=== PATIENT | female | born 1980 | race Caucasian/White ===

== ENCOUNTER 2018-03-06 14:41 | Emergency (ER) | payer SELFPAY ==
--- NOTE | 2018-03-06 16:17 | ER Document Report ---
HPI - HPI Pain Level: Denies Context: Patient is a 37-year-old female presents emergency room with a chief complaint of STD exposure. Patient states that she recently broke up with her ask within the past 6 weeks and she received a phone call today that he tested positive for gonorrhea. Patient states that she has not had any vaginal or pelvic pain, abdominal pain, nausea or vomiting, vaginal discharge. - REPRODUCTIVE Reproductive: DENIES: : Past Medical History - Social History Smoking Status: Smoker,Current Status Unk Family History: Reviewed & Not Pertinent - Past Medical History Cardiac Medical History: Reports: Hx Hypertension Musculoskeltal Medical History: Reports Hx Musculoskeletal Trauma - jaw Skin Medical History: Reports Hx Cellulitis Traumatic Medical History: Reports: Hx Fractures - jaw Past Surgical History: Reports: Hx Abdominal Surgery, Hx Appendectomy, Hx Oral Surgery - Jaw surgery, Hx Orthopedic Surgery - jaw, Hx Tonsillectomy - Immunizations Immunizations up to date: Yes Hx Diphtheria, Pertussis, Tetanus Vaccination: Yes Vertical Provider Document - CONSTITUTIONAL Notes: PHYSICAL EXAM GENERAL: Alert, interacts well. ABDOMEN: Soft, nondistended, nontender. No guarding, rebound, or rigidity.. Bowel sounds present in all 4 quadrants. FEMALE : Patient declined EXTREMITIES: Moves all 4 extremities spontaneously. No edema, radial and dorsalis pedis pulses 2/4 bilaterally. No cyanosis. NEUROLOGICAL: Alert and oriented x4. Normal speech. PSYCH: Normal affect, normal mood. SKIN: Warm, dry, normal turgor. No rashes or lesions noted. - INFECTION CONTROL TRAVEL OUTSIDE OF THE [place] IN LAST 30 DAYS: No Course - Re-evaluation Re-evalutation: Patient is a 37 old female who presents emergency department the chief complaint of concern for STD exposure. Patient opting for treatment for gonorrhea and chlamydia does not want to wait for results. Otherwise patient declined pelvic exam. Urine without any evidence of underlying UTI. Wet mount negative for yeast and trichomonas. Discussed with patient how we will follow- up with her results of stress test positive. Patient agrees with plan and stable for discharge home - Vital Signs Vital signs: Temp Pulse Resp BP Pulse Ox 97.9 F 78 18 159/87 H 99 03/06/18 14:47 03/06/18 14:47 03/06/18 14:47 03/06/18 14:47 03/06/18 14:47 Discharge - Discharge Clinical Impression: STD exposure Condition: Good Disposition: HOME, SELF-CARE Additional Instructions: You have been treated today for STD exposure. If you test positive for chlamydia or gonorrhea we will call you to the phone number provided. Please follow-up with your primary care for any other associated symptoms or concerns. Forms: Return to Work Referrals: [facility] [NO LOCAL MD] - Follow up as needed
[2018-03-06 16:37] LABS: BACTERIA (WET MOUNT) 4+ BACTERIA SEEN; EPITHELIALS (WET MOUNT) 4+ EPITHELIALS SEEN; T.VAGINALIS (WET MOUNT) NO TRICHOMONAS SEEN; WBCS (WET MOUNT) FEW WBCS SEEN; YEAST (WET MOUNT) NO YEAST SEEN
[2018-03-06 16:51] LABS: AMORPHOUS SEDIMENT,URINE TRACE /HPF; APPEARANCE,URINE CLOUDY; BILIRUBIN,URINE NEGATIVE (NEGATIVE); COLOR,URINE YELLOW; GLUCOSE, URINE NEGATIVE (NEGATIVE); KETONES,URINE NEGATIVE (NEGATIVE); LEUKOCYTE ESTERASE,URINE NEGATIVE (NEGATIVE); NITRITE,URINE NEGATIVE (NEGATIVE); PROTEIN,URINE NEGATIVE (NEGATIVE); URINE SPECIFIC GRAVITY 1.013; UROBILINOGEN,URINE NEGATIVE mg/dL (<2.0)
[2018-03-06] MEDS ORDERED: LIDOCAINE 1% INJ-PF (10 MG/ML) 30 ML SDV INJ ONE (17:35)
[2018-03-06] MEDS ORDERED: AZITHROMYCIN 250 MG TABLET PO ONE (17:35)
[2018-03-06] MEDS ORDERED: CEFTRIAXONE INJ 250 MG VIAL IM ONE (17:35)
[2018-03-06] MEDS ORDERED: ONDANSETRON 4 MG TAB.RAPDIS PO ONE (17:35)
[2018-03-06 17:43] LABS: CHLAM PCR NOT DETECTED (NOT DETECT); GON PCR NOT DETECTED (NOT DETECT)
[2018-03-06 17:54] VITALS: BP 131/83
== END 2018-03-06 18:10 | disposition home or self-care (01) ==
LOC: ER 14:41
DX: Z20.2 Contact with and (suspected) exposure to infections with a predominantly sexual mode of transmission (principal); I10 Essential (primary) hypertension
CPT/HCPCS: 99283; 96372; 87210; 81001; 87491; 87591; S0119; J3490; J0696

== ENCOUNTER 2018-12-29 10:28 | Emergency (ER) | payer SELFPAY ==
[2018-12-29 10:40] VITALS: BP 133/88
--- NOTE | 2018-12-29 11:04 | ER Document Report ---
HPI - HPI Patient complains to provider of: Cold symptoms Time Seen by Provider: 12/29/18 10:44 Onset/Duration: Persistent Quality of pain: Achy Pain Level: 4 Context: Patient presents complaining of cold symptoms for the past 3 days. Patient had a fever of 102 at home today. Patient does complain of productive cough. No nausea or vomiting. Patient states she did have some wheezing at home. Patient states she used another family members inhaler to help with her wheezing symptoms and then her wheezing improved. Associated Symptoms: Nonproductive cough, Fever, Rhinnorhea. denies: Nausea, Vomiting Exacerbated by: Denies Relieved by: Denies Similar symptoms previously: Yes Recently seen / treated by doctor: No - ROS ROS below otherwise negative: Yes Systems Reviewed and Negative: Yes All other systems reviewed and negative - CONSTITUTIONAL Constitutional: REPORTS: Fever - EENT EENT: REPORTS: Congestion - RESPIRATORY Respiratory: REPORTS: Coughing. DENIES: Trouble Breathing - GASTROINTESTINAL Gastrointestinal: DENIES: Abdominal Pain, Nausea, Patient vomiting - URINARY Urinary: DENIES: Dysuria - REPRODUCTIVE Reproductive: DENIES: : - MUSCULOSKELETAL Musculoskeletal: DENIES: Back Pain - DERM Skin Color: Normal Skin Problems: None Past Medical History - General Information source: Patient - Social History Smoking Status: Current Every Day Smoker Smoking Education Provided: Yes Frequency of alcohol use: None Drug Abuse: None Occupation: [employer] Lives with: Family Family History: Reviewed & Not Pertinent - Past Medical History Cardiac Medical History: Reports: Hx Hypertension Renal/ Medical History: Denies: Hx Peritoneal Dialysis Musculoskeletal Medical History: Reports Hx Musculoskeletal Trauma - jaw Skin Medical History: Reports Hx Cellulitis Traumatic Medical History: Reports: Hx Fractures - jaw Past Surgical History: Reports: Hx Abdominal Surgery, Hx Appendectomy, Hx Oral Surgery - Jaw surgery, Hx Orthopedic Surgery - jaw, Hx Tonsillectomy - Immunizations Immunizations up to date: Yes Hx Diphtheria, Pertussis, Tetanus Vaccination: Yes Vertical Provider Document - CONSTITUTIONAL Agree With Documented VS: Yes Exam Limitations: No Limitations General Appearance: WD/WN, No Apparent Distress - INFECTION CONTROL TRAVEL OUTSIDE OF THE [place] IN LAST 30 DAYS: No - HEENT HEENT: Atraumatic, Normocephalic. negative: Pharyngeal Exudate, Pharyngeal Tenderness, Pharyngeal Erythema, Tympanic Membrane Red, Tympanic Membrane Bulging Notes: clear rhinorrhea - NECK Neck: Normal Inspection, Supple. negative: Lymphadenopathy-Left, Lymphadenopathy-Right - RESPIRATORY Respiratory: Breath Sounds Normal, No Respiratory Distress. negative: Wheezing - CARDIOVASCULAR Cardiovascular: Regular Rate, Regular Rhythm. negative: Tachycardia - GI/ABDOMEN Gastrointestinal: Abdomen Soft - BACK Back: Normal Inspection - MUSCULOSKELETAL/EXTREMETIES Musculoskeletal/Extremeties: MAEW, FROM - NEURO Level of Consciousness: Awake, Alert, Appropriate Motor/Sensory: No Motor Deficit - DERM Integumentary: Warm, Dry, No Rash Course - Re-evaluation Re-evalutation: 12/29/18 12:27 Patient without any wheezing noted here. Will cover with steroids as well as inhaler given patient's self-report of wheezing and treatment within inhaled bronchodilator. No concern for pneumonia. Patient nontoxic in appearance. - Vital Signs Vital signs: Temp Pulse Resp BP Pulse Ox 99.9 F 91 16 133/88 H 98 12/29/18 10:38 12/29/18 10:38 12/29/18 10:38 12/29/18 10:38 12/29/18 10:38 - Laboratory Laboratory results interpreted by me: 12/29/18 12:27 Labs- Entire Visit 12/29/18 11:18 Influenza A (Rapid) NEGATIVE Influenza B (Rapid) NEGATIVE - Diagnostic Test Radiology reviewed: Reports reviewed Discharge - Discharge Clinical Impression: Upper respiratory infection Qualifiers: URI type: unspecified URI Qualified Code(s): J06.9 - Acute upper respiratory infection, unspecified Condition: Stable Disposition: HOME, SELF-CARE Additional Instructions: Return immediately for any new or worsening symptoms Followup with your primary care provider, call tomorrow to make a followup appointment UPPER RESPIRATORY ILLNESS: You have a viral infection of the respiratory passages -- a "cold." This common infection causes nasal congestion, drainage, and often sore throat and cough. It is highly contagious. The disease usually lasts about 10 to 14 days. There is no "cure" for the viral infection -- it must run its course. If there is a complication, such as bacterial infection in the nose, sinuses, middle ear, or bronchial tubes, antibiotics may be required. The antibiotics won't affect the virus. Drink plenty of fluids. A humidifier may help. An expectorant medication or decongestant may make you more comfortable. Use acetaminophen or ibuprofen for fever or aches. See the doctor if fever persists over two days, if there is any significant worsening of your symptoms, or if you simply fail to improve as expected. BRONCHOSPASM: You have tightness in the bronchial tubes, called bronchospasm. This often occurs with bronchial infections. Allergies, inhaled chemicals, and polluted or cold air can also provoke bronchospasm. It's more likely in patients with asthma in the family. Emergency treatment of bronchospasm may include adrenaline shots or bronchodilator aerosol. You may feel lightheaded and have a rapid pulse for an hour or two. Rest and get plenty of fluids. At home, we'll treat you with a bronchodilator inhaler. Antibiotics and corticosteroids may be required for some patients. Until you recover, avoid chemical fumes, dusts, pollens, and exercising in very cold or dry air. If you smoke, stop now!! If you develop a fever, increased wheezing, chest pain, or severe shortness of breath, you should contact the doctor immediately. DECONGESTANT MEDICATION: A decongestant medicine has been prescribed. Often this medicine is combined in the same tablet with an antihistamine or expectorant. This type of medicine is helpful in treating a bad cold or sinus condition, as well as in treatment of the nasal congestion of hay fever. It is not of much benefit for lung infections. Decongestant medicines are related to stimulants. They can cause an increase in blood pressure and heart rate. Persons with heart disease and high blood pressure should not take decongestants without discussing this with the physician. If you develop palpitations, chest pain, headache, or tremors, stop the medicine and consult your physician. INHALED BRONCHODILATORS: You have received a treatment of and/or prescription for an inhaled bronchodilator -- a medication which stimulates the airways in the lung to dilate. This improves the flow of air in asthma, bronchitis, and emphysema. These medicines have some similarity to adrenaline, and can cause similar side effects: shakiness, racing heart, and a sense of nervousness. These side effects decrease with time. Contact your doctor if these side effects are severe. Do not over-use the medicine. Too-frequent use of the inhaler may make it ineffective. Call your doctor if the inhaler is not controlling your symptoms at the prescribed doses. STEROID MEDICATION: You have been given an injection of or oral medicine of the cortisone/steroid class. This medication is used to control inflammation or allergy. Liam t is usually only given for a short period of time, until the acute process subsides. There are usually no side effects from short-term use of cortisone-like medications. Some persons feel an increased sense of well-being and are not sleepy at bedtime. Long-term use of cortisone medications is best avoided, unless required for a severe condition. If your condition does not remit, or relapses after the course of corticosteroid medication, you should consult your physician. USE OF ACETAMINOPHEN (Tylenol): Acetaminophen may be taken for pain relief or fever control. It's much safer than aspirin, offering a wider range of "safe" dosages. It is safe during . Some brand names are Tylenol, Panadol, Datril, Anacin 3, Tempra, and Liquiprin. Acetaminophen can be repeated every four hours. The following are maximum recommended dosages: >89 pounds or adults 650 mg to 900 mg Acetaminophen can be repeated every four hours. Maximum dose not to exceed 4000 mg a day. SMOKING: If you smoke, you should stop smoking. The tar and chemicals in cigarette smoke are harmful. Smoking has been shown to cause: emphysema chronic bronchitis lung cancer mouth and throat cancer stomach and pancreas cancer premature aging defects In addition, smoking increases ear and lung infections in children of smokers. FOLLOW-UP CARE: If you have been referred to a physician for follow-up care, call the physicians office for an appointment as you were instructed or within the next two days. If you experience worsening or a significant change in your symptoms, notify the physician immediately or return to the Emergency Department at any time for re-evaluation. Prescriptions: Benzonatate [Tessalon Perle 100 mg Capsule] 100 mg PO Q8HP PRN #20 cap PRN Reason: Albuterol Sulfate [Proair Hfa Inhalation Aerosol 8.5 gm Mdi] 2 puff IH Q4 PRN #1 mdi PRN Reason: Inhaler,Assist Device,Accesory [Optichamber] 1 each MC Q4 PRN #1 each PRN Reason: Prednisone [Deltasone 10 mg Tablet] 10 mg PO ASDIR PRN #21 tablet PRN Reason: Forms: Smoking Cessation Education, Return to Work Referrals: [facility] [Provider Group] - Follow up as needed [facility] [Provider Group] - Follow up as needed
--- NOTE | 2018-12-29 11:37 | RADIOLOGY REPORT (SQ) ---
EXAM DESCRIPTION: CHEST 2 VIEWS COMPLETED DATE/TIME: 12/29/2018 11:25 am REASON FOR STUDY: cough COMPARISON: 10/06/2008 EXAM PARAMETERS: NUMBER OF VIEWS: two views TECHNIQUE: Digital Frontal and Lateral radiographic views of the chest acquired. RADIATION DOSE: NA LIMITATIONS: none FINDINGS: LUNGS AND PLEURA: No opacities, masses or pneumothorax. No pleural effusion. MEDIASTINUM AND HILAR STRUCTURES: No masses or contour abnormalities. HEART AND VASCULAR STRUCTURES: Heart normal size. No evidence for failure. BONES: No acute findings. HARDWARE: None in the chest. OTHER: No other significant finding. IMPRESSION: NO ACUTE RADIOGRAPHIC FINDING IN THE CHEST. TECHNICAL DOCUMENTATION: JOB ID: [id number] [employer]- All Rights Reserved Reading location - IP/workstation name: [email or web address]
[2018-12-29 12:23] LABS: A TYPE INFLUENZA AG NEGATIVE (NEGATIVE); B INFLUENZA AG NEGATIVE (NEGATIVE)
== END 2018-12-29 12:38 | disposition home or self-care (01) ==
LOC: ER 10:28
DX: J06.9 Acute upper respiratory infection, unspecified (principal); R50.9 Fever, unspecified; R05 Cough; R09.89 Other specified symptoms and signs involving the circulatory and respiratory systems; F17.200 Nicotine dependence, unspecified, uncomplicated; I10 Essential (primary) hypertension
CPT/HCPCS: 71046; 87804; 99283

== ENCOUNTER → 2019-06-14 | Outpatient (CLI) | payer SELFPAY ==
--- NOTE | 2019-06-14 14:45 | RADIOLOGY REPORT (SQ) ---
EXAM DESCRIPTION: U/S [id number] TRNABD 1GES W/ODOP COMPLETED DATE/TIME: 06/14/2019 1:44 pm REASON FOR STUDY: Z34.81 ENCOUNTER FOR SUPRVSN OF NORMAL , FIRST TRIMESTER Z34.81 ENCOUNTE R FOR SUPRVSN OF NORMAL , FIRST TRIM COMPARISON: None. TECHNIQUE: Transvaginal and transabdominal static and realtime grayscale images acquired of the pelv is. Additional selected spectral and color Doppler images recorded. All images stored on PACs. bHCG: Not available CLINICAL DATES: Last menses 04/28/2019 LIMITATIONS: None. FINDINGS: FETUS: Single Living intrauterine . ULTRASOUND EGA: 6 weeks 1 day ULTRASOUND LORY: 02/06/2020 EFW: Not applicable less than 20 weeks. CRL: 0.5 cm FHR: 125 move beats per minute. SURVEY: Too early to assess. AMNIOTIC FLUID: Adequate amount. PLACENTA: Not yet developed due to early gestation. SUBCHORIONIC BLEED: No. SIZE OF BLEED: Not applicable. UTERUS: No masses. No anomalies. Uterus is 8 x 5 x 5.5 cm in size CERVICAL LENGTH: 3 cm Closed. RIGHT ADNEXA: Normal ovary with normal vascular flow. Right ovary 2.8 x 2.3 x 2.1 cm. No adnexal free fluid. No adnexal masses. LEFT ADNEXA: Normal ovary with normal vascular flow. Left ovary 2.7 x 2.6 x 2.6 cm. No adnexal free fluid. No adnexal masses. FREE FLUID: None. OTHER: No other significant finding. IMPRESSION: LIVING INTRAUTERINE . EGA 6 weeks 1 day Trimester of : First - 0 to 13 weeks. TECHNICAL DOCUMENTATION: JOB ID: [id number] [employer]- All Rights Reserved rev-04/14 Reading location - IP/workstation name: [email or web address]
== END ==
LOC: RAD 12:41
PROVIDERS: ATTEND Midwife
DX: Z34.81 Encounter for supervision of other normal pregnancy, first trimester (principal)
CPT/HCPCS: 76801

== ENCOUNTER 2019-07-01 10:41 | Emergency (ER) | payer MEDICAID ==
[2019-07-01] MEDS ORDERED: NORMAL SALINE 1000 ML 1,000 ML IV ONE (11:13)
[2019-07-01] MEDS ORDERED: ONDANSETRON HCL INJ/PF 4 MG/2 ML SDV IV ONE (11:13)
[2019-07-01] MEDS ORDERED: ACETAMINOPHEN 325 MG TABLET PO ONE (11:15)
[2019-07-01] MEDS ORDERED: PROMETHAZINE HCL INJ 25 MG/1 ML VIAL IV ONE (11:15)
--- NOTE | 2019-07-01 11:16 | ER Document Report ---
ED Medical Screen (RME) - General Chief Complaint: Diarrhea Stated Complaint: DIARRHEA Time Seen by Provider: 07/01/19 11:04 Primary Care Provider: GURPREET KAHN CNM [Primary Care Provider] - Follow up as needed Notes: Patient is a 39-year-old female who presents emergency department with a chief complaint of diarrhea. She states that she has had diarrhea since 5:00 this morning and has been going to the restroom every 5 minutes to have a bowel movement. She states that she also feels nauseous and has a slight headache. She was diagnosed with bacterial vaginosis and has been on Flagyl for the past 4 days. Patient is 10 weeks . Denies any abdominal pain or cramping. Exam: Soft nontender abdomen. Exam limited due to patient in sitting position. I have greeted and performed a rapid initial assessment of this patient. A comprehensive ED assessment and evaluation of the patient, analysis of test results and completion of medical decision making process will be conducted by an additional ED providers. TRAVEL OUTSIDE OF THE [place] IN LAST 30 DAYS: No - Related Data Allergies/Adverse Reactions: tramadol [Tramadol] Allergy (Intermediate, Verified 07/01/19 10:42) itching/vomiting Past Medical History - Social History Frequency of alcohol use: None Drug Abuse: None - Past Medical History Cardiac Medical History: Reports: Hx Hypertension Renal/ Medical History: Denies: Hx Peritoneal Dialysis Musculoskeltal Medical History: Reports Hx Musculoskeletal Trauma - jaw Skin Medical History: Reports Hx Cellulitis Traumatic Medical History: Reports: Hx Fractures - jaw Past Surgical History: Reports: Hx Abdominal Surgery, Hx Appendectomy, Hx Oral Surgery - Jaw surgery, Hx Orthopedic Surgery - jaw, Hx Tonsillectomy - Immunizations Immunizations up to date: Yes Hx Diphtheria, Pertussis, Tetanus Vaccination: Yes Physical Exam - Vital signs Vitals: Temp Pulse Resp BP Pulse Ox 97.9 F 87 15 117/73 96 07/01/19 10:47 07/01/19 10:47 07/01/19 10:47 07/01/19 10:47 07/01/19 10:47 Course - Vital Signs Vital signs: Temp Pulse Resp BP Pulse Ox 97.9 F 87 15 117/73 96 07/01/19 10:47 07/01/19 10:47 07/01/19 10:47 07/01/19 10:47 07/01/19 10:47 Doctor's Discharge - Discharge Referrals: GURPREET KAHN CNM [Primary Care Provider] - Follow up as needed
--- NOTE | 2019-07-01 11:57 | ER Document Report ---
ED General - General Chief Complaint: Diarrhea Stated Complaint: DIARRHEA Time Seen by Provider: 07/01/19 11:04 Primary Care Provider: GURPREET KAHN CNM [Primary Care Provider] - Follow up tomorrow TRAVEL OUTSIDE OF THE [place] IN LAST 30 DAYS: No - HPI Notes: 39-year-old female to the emergency department with complaints of nausea, diarrhea, fatigue for the past 2 to 3 days. She states that she has had quite a bit of diarrhea with 10 episodes today. She denies any blood in the diarrhea. She states that she was placed on Flagyl this past for a bacterial vaginosis infection. She states that she is 10 weeks . She has not had any vaginal bleeding or lower abdominal cramping. She states that she has had a confirmed IUP on ultrasound. She denies any urinary symptoms. She denies drinking any alcohol taking the Flagyl. She denies any fevers, chills, chest pain, shortness of breath, flank pain. She denies any recent travel. She denies any recent sick contact. She has never had an episode of C. difficile colitis. - Related Data Allergies/Adverse Reactions: tramadol [Tramadol] Allergy (Intermediate, Verified 07/01/19 10:42) itching/vomiting Past Medical History - General Information source: Patient - Social History Smoking Status: Current Every Day Smoker Frequency of alcohol use: None Drug Abuse: None Family History: Reviewed & Not Pertinent Patient has suicidal ideation: No Patient has homicidal ideation: No - Past Medical History Cardiac Medical History: Reports: Hx Hypertension Renal/ Medical History: Denies: Hx Peritoneal Dialysis Musculoskeletal Medical History: Reports Hx Musculoskeletal Trauma - jaw Skin Medical History: Reports Hx Cellulitis Traumatic Medical History: Reports: Hx Fractures - jaw Past Surgical History: Reports: Hx Abdominal Surgery, Hx Appendectomy, Hx Oral Surgery - Jaw surgery, Hx Orthopedic Surgery - jaw, Hx Tonsillectomy - Immunizations Immunizations up to date: Yes Hx Diphtheria, Pertussis, Tetanus Vaccination: Yes Review of Systems - Review of Systems Constitutional: See HPI, Weakness. denies: Chills, Fever EENT: No symptoms reported Cardiovascular: denies: Chest pain, Palpitations, Dyspnea, Syncope, Dizziness, Lightheaded Respiratory: denies: Cough, Short of breath Gastrointestinal: Diarrhea, Nausea, Poor appetite, Poor fluid intake. denies: Vomiting, Blood in vomit, Black stools, Rectal bleeding Genitourinary: denies: Frequency, Flank pain, Hematuria Female Genitourinary: denies: Vaginal discharge, Vaginal bleeding Musculoskeletal: No symptoms reported Skin: No symptoms reported Hematologic/Lymphatic: No symptoms reported Neurological/Psychological: No symptoms reported -: Yes All other systems reviewed and negative Physical Exam - Vital signs Vitals: Temp Pulse Resp BP Pulse Ox 97.9 F 87 15 117/73 96 07/01/19 10:47 07/01/19 10:47 07/01/19 10:47 07/01/19 10:47 07/01/19 10:47 Interpretation: Normal - General General appearance: Appears well, Alert - HEENT Head: Normocephalic, Atraumatic Eyes: Normal Pupils: PERRL - Respiratory Respiratory status: No respiratory distress Chest status: Nontender Breath sounds: Normal Chest palpation: Normal - Cardiovascular Rhythm: Regular Heart sounds: Normal auscultation Murmur: No - Abdominal Inspection: Normal Distension: No distension Bowel sounds: Normal Tenderness: Nontender Organomegaly: No organomegaly - Back Back: Normal, Nontender - Neurological Neuro grossly intact: Yes Cognition: Normal Orientation: AAOx4 [place] Coma Scale Eye Opening: Spontaneous Matthieu Coma Scale Verbal: Oriented Matthieu Coma Scale Motor: Obeys Commands Matthieu Coma Scale Total: 15 Speech: Normal Motor strength normal: LUE, RUE, LLE, RLE Sensory: Normal - Psychological Associated symptoms: Normal affect, Normal mood - Skin Skin Temperature: Warm Skin Moisture: Dry Skin Color: Normal Course - Re-evaluation Re-evalutation: 07/01/19 Rounded on patient after labs returned and after she received fluids and antiem etics. She states that she is feeling much better. She has not had any episodes of diarrhea since arrival. She states her nausea has resolved. She states that she is feeling a little hungry and would like to try something to drink. We will go ahead and p.o. challenge patient with some diane mikey in the more I am on her again. Rounded on patient and she is tolerating p.o. diane mikey with no problem. She states that she feels better but in general feels very fatigued. She has not had any lower abdominal cramping or vaginal bleeding to suggest concerns with her . This is her second but she has no living children. She was started on Flagyl which certainly could be giving her some of her symptoms. She is negative for C. difficile. Her other labs are reassuring. We will plan to send patient home with likely just for nausea. Encouraged her to push fluids. We will have her follow-up with her [employer] tomorrow. I have encouraged her to return if she has intractable diarrhea, intractable vomiting, abdominal pain, or vaginal bleeding. She agrees with the plan. Also her mother is bedside and also agrees with the plan. Impression: Diarrhea, nausea, 10 weeks . Patient just placed on Flagyl and this could be a side effect from that medicine. She is not C. difficile positive. She is done well in the emergency department and is feeling better after antiemetics and IV fluids. Plan will be to discharge with close outpatient follow-up and return here if worse. Strict return precautions were given. - Vital Signs Vital signs: Temp Pulse Resp BP Pulse Ox 98.2 F 77 17 119/69 97 07/01/19 15:17 07/01/19 15:17 07/01/19 15:17 07/01/19 15:17 07/01/19 15:17 - Laboratory Result Diagrams: 07/01/19 11:58 07/01/19 11:58 Laboratory results interpreted by me: 07/01/19 07/01/19 07/01/19 11:58 11:58 12:03 WBC 11.0 H Seg Neutrophils % 78.3 H Absolute Neutrophils 8.6 H AST 39 H Ur Leukocyte Esterase TRACE H Discharge - Discharge Clinical Impression: Nausea Diarrhea Qualifiers: Diarrhea type: unspecified type Qualified Code(s): R19.7 - Diarrhea, unspecified Condition: Stable Disposition: HOME, SELF-CARE Instructions: Diarrhea, Nonspecific ([facility]) Additional Instructions: PUSH FLUIDS. BLAND DIET TOLERATED. TAKE DICLEGIS FOR NAUSEA. RETURN IF INTRACTABLE VOMITING, FEVERS, WORSENING DIARRHEA, BLOOD IN STOOL, LOWER ABDOMINAL CRAMPING, VAGINAL BLEEDING. FOLLOW UP WITH THE HEALTH DEPARTMENT TOMORROW FOR CLOSE OUTPATIENT FOLLOW UP. Prescriptions: Doxylamine Succinate/Vit B6 [Dicanalisagis Dr 10-10 mg Tablet] 1 each PO BID #20 tablet.dr Forms: Return to Work Referrals: GURPREET KAHN CNM [Primary Care Provider] - Follow up tomorrow
[2019-07-01 12:15] LABS: ABSOLUTE LYMPHOCYTES (AUTO) 1.5 10^3/uL (0.5-4.7); ABSOLUTE MONOCYTES (AUTO) 0.8 10^3/uL (0.1-1.4); ABSOLUTE NEUT (AUTO) 8.6 10^3/uL (1.7-8.2); BASOPHILS % (AUTO) 0.2 % (0-2); EOSINOPHILS % (AUTO) 0.3 % (0-6); HEMATOCRIT 42.1 % (36.0-47.0); HEMOGLOBIN 14.4 g/dL (12.0-15.5); LYMPHOCYTES % (AUTO) 13.7 % (13-45); MEAN CORPUSCULAR HEMOGLOBIN 31.5 pg (27.0-33.4); MEAN CORPUSCULAR HGB CONC 34.1 g/dL (32.0-36.0); MEAN CORPUSCULAR VOLUME 92 fl (80-97); MONOCYTES % (AUTO) 7.5 % (3-13); PLATELET COUNT 262 10^3/uL (150-450); RED BLOOD COUNT 4.56 10^6/uL (3.72-5.28); RED CELL DISTRIBUTION WIDTH 13.3 % (11.5-14.0); SEGMENTED NEUTROPHILS % (AUTO) 78.3 % (42-78); TOTAL CELLS COUNTED % (AUTO) 100 %
[2019-07-01 12:34] LABS: ALKALINE PHOSPHATASE 77 U/L (38-126); ANION GAP 10 (5-19); ASPARTATE AMINO TRANSFERASE 39 U/L (14-36); BILIRUBIN,DIRECT 0.3 mg/dL (0.0-0.4); BILIRUBIN,TOTAL 0.4 mg/dL (0.2-1.3); BLOOD UREA NITROGEN 9 mg/dL (7-20); CALCIUM 9.3 mg/dL (8.4-10.2); CARBON DIOXIDE 22 mmol/L (22-30); CHLORIDE 106 mmol/L (98-107); GLUCOSE 92 mg/dL (75-110); POTASSIUM 4.4 mmol/L (3.6-5.0)
[2019-07-01 12:38] LABS: APPEARANCE,URINE SLIGHTLY-CLOUDY; BILIRUBIN,URINE NEGATIVE (NEGATIVE); COLOR,URINE YELLOW; GLUCOSE, URINE NEGATIVE (NEGATIVE); KETONES,URINE NEGATIVE (NEGATIVE); LEUKOCYTE ESTERASE,URINE TRACE (NEGATIVE); NITRITE,URINE NEGATIVE (NEGATIVE); PROTEIN,URINE NEGATIVE (NEGATIVE); URINE SPECIFIC GRAVITY 1.008; UROBILINOGEN,URINE NEGATIVE mg/dL (<2.0)
[2019-07-01 15:19] VITALS: BP 119/69
== END 2019-07-01 15:18 | disposition home or self-care (01) ==
LOC: ER 10:41
DX: O26.891 Other specified pregnancy related conditions, first trimester (principal); R19.7 Diarrhea, unspecified; R11.0 Nausea; R63.0 Anorexia; R53.1 Weakness; O23.591 Infection of other part of genital tract in pregnancy, first trimester; B96.89 Other specified bacterial agents as the cause of diseases classified elsewhere; O26.811 Pregnancy related exhaustion and fatigue, first trimester; O99.331 Smoking (tobacco) complicating pregnancy, first trimester; F17.200 Nicotine dependence, unspecified, uncomplicated; O16.1 Unspecified maternal hypertension, first trimester; Z3A.10 10 weeks gestation of pregnancy; Z88.5 Allergy status to narcotic agent
CPT/HCPCS: 36415; 85025; 80053; 81001; 87493; J3490; J2550; J7030; 96361; 96374; 99284

== ENCOUNTER → 2020-12-08 | Outpatient (CLI) | payer MEDICAID ==
--- NOTE | 2020-12-08 15:20 | WOMENS IMAGING REPORT ---
EXAM DESCRIPTION: BILAT SCREENING MAMMO W/CAD IMAGES COMPLETED DATE/TIME: 12/08/2020 3:05 pm REASON FOR STUDY: ROUTINE SCREENING MAMMOGRAM Z12.31Z12.31 ENCNTR SCREEN MAMMOGRAM FOR MALIGNANT NE OPLASM OF [place] COMPARISON: Baseline examination. EXAM PARAMETERS: Standard craniocaudal and mediolateral oblique views of each breast recorded using digital acquisition. Read with the assistance of CAD. .[facility] - [employer] Person Version 9.2 LIMITATIONS: None. FINDINGS: RIGHT BREAST MASSES: No suspicious masses. CALCIFICATIONS: No new or suspicious calcifications. ARCHITECTURAL DISTORTION: None. ASYMMETRY: None noted. OTHER: No other significant findings. LEFT BREAST MASSES: No suspicious masses. CALCIFICATIONS: No new or suspicious calcifications. ARCHITECTURAL DISTORTION: None. ASYMMETRY: Focal asymmetry upper-outer quadrant of the breast, mid-posterior depth, approximately 11 .4 cm from the nipple. OTHER: No other significant findings. IMPRESSION: 1. Focal asymmetry upper-outer quadrant Left breast. 0 Incomplete: Needs Additional Imaging Evaluation and/or prior Mammograms for Comparison. BREAST DENSITY: b. There are scattered areas of fibroglandular density. BIRAD: ASSESSMENT: 0 Incomplete: Needs Additional Imaging Evaluation and/or prior Mammograms for C omparison. RECOMMENDATION: 1. Special view mammogram Left breast: spot compression and additional views. Ult rasound if needed. The patient will be contacted for additional imaging. COMMENT: The patient has been notified of the results by letter per MQSA requirements. Additional no tification policies are in place for contacting patient with suspicious or incomplete findings. Quality ID #225: The [employer] recommends an annual screening mammogram for women aged 40 years or over. This facility utilizes a reminder system to ensure that all patients receive reminder letters, and/or direct phone calls for appointments. This includes reminders for routine scr eening mammograms, diagnostic mammograms, or other Breast Imaging Interventions when appropriate. Th is patient will be placed in the appropriate reminder system. TECHNICAL DOCUMENTATION: FINDING NUMBER: (1) ASSESSMENT: (1) JOB ID: [id number] 2010 [employer]- All Rights Reserved Reading location - IP/workstation name: [email or web address]
== END ==
LOC: WI 14:52
PROVIDERS: ATTEND Nurse Practitioner Family
DX: Z12.31 Encounter for screening mammogram for malignant neoplasm of breast (principal); N64.89 Other specified disorders of breast
CPT/HCPCS: 77067

== ENCOUNTER → 2020-12-19 | Outpatient (CLI) | payer MEDICAID ==
--- NOTE | 2020-12-22 10:06 | WOMENS IMAGING REPORT ---
EXAM DESCRIPTION: LEFT DIAGNOSTIC MAMMO W/CAD; U/S BREAST UNILATERAL, COMPL IMAGES COMPLETED DATE/TIME: 12/19/2020 1:47 pm; 12/19/2020 2:19 pm REASON FOR STUDY: LT BREAST ASYMMETRY R92.2; LEFT BREAST R92.2 R92.2 INCONCLUSIVE MAMMOGRAM COMPARISON: 12/08/2020 screening mammography. EXAM PARAMETERS: Cc, true lateral and MLO spot compressed views. Non spot compressed true lateral i mage. Targeted breast ultrasound. LIMITATIONS: None. FINDINGS: BREAST LATERALITY: left MASSES: No suspicious masses. CALCIFICATIONS: No new or suspicious calcifications. ARCHITECTURAL DISTORTION: None. ASYMMETRY: Minimal focal asymmetry persists in the region of interest, see ultrasound. OTHER: No other significant findings. Ultrasound: Imaging of the entirety of the left breast scanned per order. There is no tissue distor tion or mass or suspicious finding noted. IMPRESSION: 1. Minimal asymmetry in the left breast is suspected to be a patch of fibroglandular tissue surrounde d by generally fatty tissue. No worrisome features or findings. BREAST DENSITY: a. The breasts are almost entirely fatty. BIRAD: ASSESSMENT: 2 Benign findings. RECOMMENDATION: RECOMMENDED FOLLOW UP: Birads 1 or 2: The patient should resume routine screening . SPECIFIC INTERVENTION/IMAGING/CONSULTATION RECOMMENDED:No additional intervention/ imaging/consultati on needed at this time. COMMUNICATION:No significant abnormalities to discuss with the patient today. COMMENT: The patient has been notified of the results by letter per MQSA requirements. Additional no tification policies are in place for contacting patient with suspicious or incomplete findings. Quality ID #225: The [employer] recommends an annual screening mammogram for women aged 40 years or over. This facility utilizes a reminder system to ensure that all patients receive reminder letters, and/or direct phone calls for appointments. This includes reminders for routine scr eening mammograms, diagnostic mammograms, or other Breast Imaging Interventions when appropriate. Th is patient will be placed in the appropriate reminder system. TECHNICAL DOCUMENTATION: FINDING NUMBER: (1) ASSESSMENT: (1) JOB ID: [id number] 2010 [employer]- All Rights Reserved Reading location - IP/workstation name: [email or web address]
== END ==
LOC: WI 13:33
PROVIDERS: ATTEND Nurse Practitioner Family
DX: N64.89 Other specified disorders of breast (principal)
CPT/HCPCS: 76641; 77065